=== PATIENT | female | born 1990 | race Caucasian/White ===

== ENCOUNTER 2019-08-07 18:44 | Emergency (ER) | payer SELFPAY ==
--- NOTE | 2019-08-07 21:09 | ER ---
Nurse's Notes [facility] Name: Charli Cartwright Age: 29 yrs Sex: Female : 1990 Arrival Date: 08/07/2019 Time: 18:45 Bed 13 Private MD: Diagnosis: Acute upper respiratory infection, unspecified Presentation: 08/06 19:04 Chief complaint: Patient states: headache and sore throat that began last night. ss Coronavirus screen: The patient has NOT traveled to a country currently being monitored by the [facility] within the last 14 days. Proceed with normal triage procedures. Ebola Screen: Patient denies exposure to infectious person. Patient denies travel to an Ebola-affected area in the 21 days before illness onset. Initial Sepsis Screen: Does the patient meet any 2 criteria? No. Patient's initial sepsis screen is negative. Does the patient have a suspected source of infection? No. Patient's initial sepsis screen is negative. Risk Assessment: Do you want to hurt yourself or someone else? Patient reports no desire to harm self or others. 19:04 Method Of Arrival: Ambulatory 19:04 Acuity: MEGHAN 4 ss 21:00 Onset of symptoms was August 07, 2019. mg2 Triage Assessment: 21:00 Headache History: The patient has had previous headaches and this one is similar to mg2 previous episodes. General: Appears in no apparent distress. comfortable, Behavior is calm, cooperative. Pain: Also complains of no other associated symptoms. 21:00 Pain: Pain currently is 4 out of 10 on a pain scale. Pain began gradually. 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 - Social history:: Smoking status: Patient denies any tobacco usage or history of. Screenin:23 Abuse screen: Denies threats or abuse. Denies injuries from another. Nutritional mg2 screening: No deficits noted. Tuberculosis screening: No symptoms or risk factors identified. Fall Risk None identified. Assessment: 21:00 General: Appears in no apparent distress. comfortable, Behavior is calm, cooperative. mg2 Pain: Complains of pain in head and throat. Neuro: Level of Consciousness is awake, alert, obeys commands, Oriented to person, place, time, situation. GI: Reports vomiting. EENT: Throat is clear Reports sore throat. Vital Signs: 19:05 BP 115 / 70; Pulse 107; Resp 15; Temp 98.0(TE); Pulse Ox 98% on R/A; Weight 92.99 kg; Height 5 ft. 5 in. (165.10 cm); Pain 7/10; 21:23 BP 121 / 78; Pulse 95; Resp 18; Temp 98; Pulse Ox 100% on R/A; mg2 19:05 Body Mass Index 34.11 (92.99 kg, 165.10 cm) ED Course: 18:45 Patient arrived in ED. rg4 19:01 Denise Toro FNP-C is [facility]. snw 19:01 Sesar Infante MD is Attending Physician. snw 19:04 Triage completed. 19:05 Arm band placed on right wrist. 20:05 Shashank Null, PRISCILA is Primary Nurse. mg2 20:20 No provider procedures requiring assistance completed. Flu and/or RSV swab sent to lab. mg2 Strep swab sent to lab. 21:00 Patient has correct armband on for positive identification. mg2 21:20 Patient did not have IV access during this emergency room visit. mg2 Administered Medications: 21:18 Drug: TORadol 30 mg Route: IM; Site: right gluteus; mg2 21:22 Follow up: Response: No adverse reaction; Medication administered at discharge. mg2 Outcome: 21:07 Discharge ordered by . snw 21:24 Discharged to home ambulatory. mg2 21:24 Condition: good 21:24 Discharge instructions given to patient, Instructed on discharge instructions, follow up and referral plans. Demonstrated understanding of instructions, follow-up care, medications, Prescriptions given X 1. 21:26 Patient left the ED. mg2 Signatures: Denise Toro FNP-C FNP-Tia Deleon RN RN Paris Odom rg4 Shashank Null RN RN mg2
--- NOTE | 2019-08-07 21:09 | EDPHYS ---
Physician Documentation [facility] Name: Charli Cartwright Age: 29 yrs Sex: Female : 1990 Arrival Date: 08/07/2019 Time: 18:45 Bed 13 Private MD: ED Physician Sesar Infante HPI: 08/06 21:10 This 29 yrs old Female presents to ER via Ambulatory with complaints of snw Headache, Sore Throat, Vomiting. 21:10 The patient complains of pain to the top of head and forehead. snw 21:11 The patient presents with sore throat. The patient describes throat pain as raw, snw scratchy. Onset: The symptoms/episode began/occurred suddenly, last night. Severity of symptoms: At their worst the symptoms were moderate. Associated signs and symptoms: Pertinent positives: flu-like symptoms, malaise, headache, nausea, Sore throat. It is unknown whether or not the patient has had similar symptoms in the past. The patient has not recently seen a physician. 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 - Social history:: Smoking status: Patient denies any tobacco usage or history of. ROS: 21:10 Eyes: Negative for injury, pain, redness, and discharge. snw 21:10 Neck: Negative for injury, pain, and swelling, Cardiovascular: Negative for chest pain, palpitations, and edema, Respiratory: Negative for shortness of breath, cough, wheezing, and pleuritic chest pain. 21:10 Back: Negative for injury and pain, : Negative for injury, bleeding, discharge, and swelling, MS/Extremity: Negative for injury and deformity, Skin: Negative for injury, rash, and discoloration. 21:10 Constitutional: Positive for body aches, fever, malaise, poor PO intake. 21:10 ENT: Positive for sinus congestion, sore throat. 21:10 Abdomen/GI: Positive for nausea and vomiting. 21:10 Neuro: Positive for headache. Exam: 21:04 Constitutional: This is a well developed, well nourished patient who is awake, alert, snw and in no acute distress. Head/Face: Normocephalic, atraumatic. Eyes: Pupils equal round and reactive to light, extra-ocular motions intact. Lids and lashes normal. Conjunctiva and sclera are non-icteric and not injected. Cornea within normal limits. Periorbital areas with no swelling, redness, or edema. Neck: Trachea midline, no thyromegaly or masses palpated, and minimal cervical lymphadenopathy. Supple, full range of motion without nuchal rigidity, or vertebral point tenderness. No Meningismus. Cardiovascular: Regular rate and rhythm with a normal S1 and S2. No gallops, murmurs, or rubs. Normal PMI, no JVD. No pulse deficits. Respiratory: Lungs have equal breath sounds bilaterally, clear to auscultation and percussion. No rales, rhonchi or wheezes noted. No increased work of breathing, no retractions or nasal flaring. 21:04 Abdomen/GI: Soft, non-tender, with normal bowel sounds. No distension or tympany. No guarding or rebound. No evidence of tenderness throughout. Back: No spinal tenderness. No costovertebral tenderness. Full range of motion. Skin: Warm, dry with normal turgor. Normal color with no rashes, no lesions, and no evidence of cellulitis. MS/ Extremity: Pulses equal, no cyanosis. Neurovascular intact. Full, normal range of motion. Neuro: Awake and alert, GCS 15, oriented to person, place, time, and situation. Cranial nerves II-XII grossly intact. Motor strength 5/5 in all extremities. Sensory grossly intact. Cerebellar exam normal. Normal gait. 21:04 ENT: External ear(s): are unremarkable, Ear canal(s): are normal, TM's: dullness, bilaterally, fluid levels, Nose: is normal, Posterior pharynx: erythema, that is mild, Voice: is normal. Vital Signs: 19:05 BP 115 / 70; Pulse 107; Resp 15; Temp 98.0(TE); Pulse Ox 98% on R/A; Weight 92.99 kg; ss Height 5 ft. 5 in. (165.10 cm); Pain 7/10; 21:23 BP 121 / 78; Pulse 95; Resp 18; Temp 98; Pulse Ox 100% on R/A; mg2 19:05 Body Mass Index 34.11 (92.99 kg, 165.10 cm) ss MDM: 20:13 Patient medically screened. [facility] 21:09 Data reviewed: vital signs, nurses notes. Data interpreted: Pulse oximetry: on room air snw is 98 %. Interpretation: normal. Counseling: I had a detailed discussion with the patient and/or guardian regarding: the historical points, exam findings, and any diagnostic results supporting the discharge/admit diagnosis, lab results, the need for outpatient follow up, to return to the emergency department if symptoms worsen or persist or if there are any questions or concerns that arise at home. Response to treatment: the patient's symptoms have mildly improved after treatment. Special discussion: Based on the history and exam findings, there is no indication for further emergent testing or inpatient evaluation. I discussed with the patient/guardian the need to see the primary care provider for further evaluation of the symptoms. 08/06 19:01 Order name: Flu; Complete Time: 21:06 snw 08/06 19:01 Order name: Strep; Complete Time: 21:06 snw 08/06 20:22 Order name: Urine Culture ao 08/06 20:22 Order name: Urine Microscopic Only ao 08/06 20:52 Order name: Urine Dipstick--Ancillary (enter results) ma 08/06 20:52 Order name: Urine --Ancillary (enter results) ma 08/06 20:22 Order name: Urine Test (obtain specimen); Complete Time: 20:54 ao 08/06 20:22 Order name: Urine Dipstick-Ancillary (obtain specimen); Complete Time: 20:54 ao 08/06 21:06 Order name: Throat Culture EDMS Administered Medications: 21:18 Drug: TORadol 30 mg Route: IM; Site: right gluteus; mg2 21:22 Follow up: Response: No adverse reaction; Medication administered at discharge. mg2 Disposition: 08/07 08:01 Co-signature as Attending Physician, Sesar Infante MD I agree with the assessment and [facility] plan of care. Disposition: 08/07/19 21:07 Discharged to Home. Impression: Acute upper respiratory infection, unspecified. - Condition is Stable. - Discharge Instructions: Pharyngitis, Upper Respiratory Infection, Adult, Rehydration, Adult. - Prescriptions for promethazine 25 mg Oral Tablet - take 1 tablet by ORAL route every 6 hours As needed; 20 tablet. - Work release form, Medication Reconciliation Form, Thank You Letter, Antibiotic Education, Prescription Opioid Use form. - Follow up: Emergency Department; When: As needed; Reason: Worsening of condition. Follow up: Private Physician; When: 2 - 3 days; Reason: Recheck today's complaints, Continuance of care, Re-evaluation by your physician. Signatures: Dispatcher [employer] EDPR Sesar Infante MD MD cha Therrien, Shelly, MANUFACTURING INSPECTOR-C MANUFACTURING INSPECTOR-Csnw Tia Toure RN RN ss Misael Henriquez, RN RN ao Shashank Null, RN RN mg2 Corrections: (The following items were deleted from the chart) 08/06 21:26 21:07 08/07/2019 21:07 Discharged to Home. Impression: Acute upper respiratory mg2 infection, unspecified. Condition is Stable. Forms are Medication Reconciliation Form, Thank You Letter, Antibiotic Education, Prescription Opioid Use. Follow up: Emergency Department; When: As needed; Reason: Worsening of condition. Follow up: Private Physician; When: 2 - 3 days; Reason: Recheck today's complaints, Continuance of care, Re-evaluation by your physician. snw
[2019-08-07] MEDS ORDERED: KETOROLAC 30 MG/ML INJ ONE (21:13)
[2019-08-07 21:45] VITALS: BP 121/78; TEMP 98; O2SAT 100
[2019-08-07 21:50] LABS: Urine Blood NEGATIVE (NEG); Urine Glucose NEGATIVE (NEG); Urine Protein NEGATIVE (NEG); Urine Specific Gravity >1.030 (1.005-1.030); Urine pH 5.5 (5.0-7.0)
[2019-08-07 21:50] LABS: Urine Bacteria 20-50 /HPF (<20); Urine Culture Reflex Order NOT NEEDED; Urine Mucus 1+ /HPF (NONE SEEN); Urine RBC <5 /HPF (NONE SEEN)
== END 2019-08-07 21:26 | disposition home or self-care (01) ==
LOC: ER 18:44
DX: J06.9 Acute upper respiratory infection, unspecified (principal); Z88.0 Allergy status to penicillin
CPT/HCPCS: 81003; 81015; 81025; 87070; 87081; 87086; 87088; 87804; 96372; 99283

== ENCOUNTER 2019-08-17 11:26 | Emergency (ER) | payer SELFPAY ==
--- OUTSIDE RECORDS SUMMARY | 2019-08-17 11:29 | XMS REPORT | Summary of Care ---
:1990 Author Organization [facility] Address [address] [place] [id number] Care Team Providers Name Role Phone Pcp, Patient Does Not Have A Primary Care Provider Reason for Referral MRI/CAT Scan (STAT) Status Reason Specialty Diagnoses / Referred By Referred To Procedures Contact Contact New Request Diagnostic Diagnoses Acute left flank pain Crissy Mckeon Radiology Procedures CT ABDOMEN PELVIS WO CONTRAST MD Arsenio [address] [place] [id number] MRI/CAT Scan (STAT) Status Reason Specialty Diagnoses / Referred By Referred To Procedures Contact Contact New Request Diagnostic Diagnoses Acute left flank pain Piperrima, Marvinkili Radiology Procedures CT ABDOMEN PELVIS WO CONTRAST MD Arsenio [address] [place] [id number] Reason for Visit Reason Comments Flank Pain Auth/Cert Status Reason Specialty Diagnoses / Referred By Referred To Procedures Contact Contact Emergency Medicine Diagnoses FLANK PAIN [facility] [address] [place] [address] [place] [address] Encounter Details Date Type Department Care Team Description 12/30/2018 Emergency [facility]Emergency Crissy Mckeon, Acute left flank pain Department (Primary Dx) [address] [place] [address] [place] [id number] [place], [place] [id number] Allergies Active Allergy Reactions Severity Noted Date Comments Amoxicillin Itching 11/30/2017 documented as of this encounter (statuses as of 12/30/2018) Medications Medication Sig Dispensed Refills Start Date End Date Status ibuprofen 800 mg Take 1 tablet by 21 tablet 0 12/30/2018 Active tabletIndications: mouth every 8 Acute left flank pain (eight) hours as needed (PAIN). documented as of this encounter (statuses as of 12/30/2018) Active Problems Not on filedocumented as of this encounter (statuses as of 12/30/2018) Social History Tobacco Use Types Packs/Day Years Used Date Never Assessed Sex Assigned at Date Recorded Not on file Job Start Date Occupation Industry Not on file Not on file Not on file Travel History Travel Start Travel End No recent travel history available. documented as of this encounter Last Filed Vital Signs Vital Sign Reading Time Taken Comments Blood Pressure 125/82 12/30/2018 2:28 AM CDT Pulse 66 12/30/2018 2:28 AM CDT Temperature 37.1 C (98.7 F) 12/30/2018 12:18 AM CDT Respiratory Rate 16 12/30/2018 2:28 AM CDT Oxygen Saturation 99% 12/30/2018 2:28 AM CDT Inhaled Oxygen Concentration - - Weight 81.6 kg (180 lb) 12/30/2018 12:18 AM CDT Height 167.6 cm (5' 6") 12/30/2018 12:18 AM CDT Body Mass Index 29.05 12/30/2018 12:18 AM CDT documented in this encounter Discharge Instructions Crissy Díaz MD - 12/30/2018 DIAGNOSIS Diagnoses that have been ruled out: None Diagnoses that are still under consideration: None Final diagnoses: Acute left flank pain NO LIFE-THREATENING FINDINGS ON TODAY'S EXAM. PROCEDURES IN THE ER TODAY: Orders Placed This Encounter Procedures CT ABDOMEN PELVIS WO CONTRAST CBC WITH DIFF COMP. METABOLIC PANEL (62155) LIPASE URINALYSIS POCT TEST CBC WITH DIFFERENTIAL MEDICATIONS ADMINISTERED IN THE ER TODAY AND DISCHARGE MEDICATIONS: Orders Placed This Encounter Medications ketorolac (TORADOL) injection 30 mg ibuprofen 800 mg tablet FOLLOW-UP RECOMMENDATIONS: RECOMMEND FOLLOW-UP WITH A PRIMARY CARE PROVIDER OR SPECIALIST IN 2-5 DAYS, ESPECIALLY IF NO IMPROVEMENT IN SYMPTOMS. MAY FOLLOW-UP WITH A PROVIDER OF YOUR CHOICE, SUCH : 1. A PHYSICIAN OF YOUR CHOICE 2. [facility], . LOCATIONS IN [facility] 3. [facility], [address] [place], [place]; OR, IF YOU WISH TO FOLLOW-UP WITHIN THE [facility], MAY TRY THESE OPTIONS (CLINIC APPOINTMENTS AVAILABLE ON [id number] BASIS): 1. SCHEDULE AN APPOINTMENT ONLINE AT [email or web address] 2. OR CALL THE [facility] AT OR 3. OR CALL YOUR [facility] PHYSICIAN'S OFFICE DIRECTLY IF YOU ARE ALREADY AN ESTABLISHED [facility] PATIENT. RETURN TO ER FOR WORSENING OF SYMPTOMS documented in this encounter Plan of Treatment Name Type Priority Associated Diagnoses Date/Time CT ABDOMEN PELVIS WO IMAGING STAT Acute left flank pain 12/30/2018 2:19 AM CDT CONTRAST Health Maintenance Due Date Last Done Comments VARICELLA VACCINES (1 of 2 - 13+ 2003 2-dose series) DTaP,Tdap,and Td Vaccines (1 - 2009 Tdap) PAP SMEAR 11/03/2011 11/02/2008 INFLUENZA VACCINE 01/29/2019 PNEUMOCOCCAL 0-64 YEARS COMBINED Aged Out No longer eligible based on SERIES patient's age to complete this topic documented as of this encounter Procedures Procedure Name Priority Date/Time Associated Diagnosis Comments CT ABDOMEN PELVIS WO STAT 12/30/2018 2:19 AM Acute left flank pain CONTRAST CDT Procedure Note - [facility], Radiant Results Inft User - 12/30/2018 2:29 AM CDT * * * * * * * * ORIGINAL REPORT * * * * * * * * EXAM: CT ABDOMEN PELVIS WO CONTRAST HISTORY: 28-year-old female complains of Flank pain, stone disease suspected COMPARISON: None. TECHNIQUE AND FINDINGS: Contiguous axial imaging from the level of the lung bases through the pubic symphysis was performed without the intravenous administration of contrast. Coronal and sagittal reconstructions were obtained. Auto mA and/or iterative reconstruction were used to reduce radiation dose. FINDINGS: LOWER THORAX: The lungs bases are clear. No cardiomegaly. LIVER: Liver is enlarged measures 18.8 cm and slightly hypodense. No focal hepatic lesions are identified within the limitation of a noncontrast study. GALLBLADDER AND BILIARY TREE: No biliary ductal dilation. The gallbladder is decompressed. SPLEEN: No splenomegaly. PANCREAS: No ductal dilation or masses. ADRENAL GLANDS: No adrenal nodules. KIDNEYS: No hydronephrosis, stones, or masses. PERITONEUM AND RETROPERITONEUM: No free air or fluid. LYMPH NODES: No lymphadenopathy. GI TRACT: No bowel dilation or wall thickening. The appendix is normal (2:77-98). PELVIS/BLADDER: Unremarkable. The bladder is partially decompressed. The uterus appears normal and contains an intrauterine device within the endometrial cavity. VESSELS: Unremarkable. BONES AND SOFT TISSUES: A punctate focus of sclerosis is seen in the right acetabulum, likely representing a bone island No suspicious lytic or sclerotic bony lesions. IMPRESSION No CT findings to explain patient's flank pain. Hepatomegaly with hepatic steatosis. POCT TEST LEIDA 12/30/2018 1:36 AM Acute left flank Results for this CDT pain procedure are in the results section. CBC WITH DIFFERENTIAL STAT 12/30/2018 1:35 AM Acute left flank Results for this CDT pain procedure are in the results section. CBC WITH DIFF STAT 12/30/2018 1:35 AM Acute left flank Results for this CDT pain procedure are in the results section. COMP. METABOLIC PANEL STAT 12/30/2018 1:35 AM Acute left flank Results for this (47004) CDT pain procedure are in the results section. LIPASE STAT 12/30/2018 1:35 AM Acute left flank Results for this CDT pain procedure are in the results section. URINALYSIS STAT 12/30/2018 1:28 AM Acute left flank Results for this CDT pain procedure are in the results section. documented in this encounter Results POCT TEST (12/30/2018 1:36 AM CDT) Pathologist [facility] POCT PREG Negative On board controls acceptable Present with C Line POCT PREG LOT # [id number] POCT PREG TEST DATE 05/30/2020 Specimen Urine - URINE, CLEAN CATCH CBC WITH DIFFERENTIAL (12/30/2018 1:35 AM CDT) [facility] WBC 7.48 4.30 - 11.10 [facility] 10*3/L [facility] RBC 4.64 3.93 - 5.25 [facility] 10*6/L [facility] HGB 14.7 11.6 - 15.0 g/dL [facility] HCT 43.2 35.7 - 45.2 % [facility] MCV 93.1 80.6 - 95.5 fL [facility] MCH 31.7 25.9 - 32.8 pg [facility] MCHC 34.0 31.6 - 35.1 g/dL [facility] RDW-SD 41.7 39.0 - 49.9 fL [facility] RDW-CV 12.1 12.0 - 15.5 % [facility] PLT 208 166 - 358 [facility] 10*3/L [facility] MPV 11.5 9.5 - 12.9 fL [facility] NRBC/100 WBC 0.0 0.0 - 10.0 /100 [facility] WBCs [facility] NRBC x10^3 <0.01 10*3/L [facility] GRAN MAT (NEUT) % 56.3 % [facility] IMM GRAN % 0.50 % [facility] LYMPH % 33.0 % [facility] MONO % 8.6 % [facility] EOS % 1.2 % [facility] BASO % 0.4 % [facility] GRAN MAT x10^3(ANC) 4.21 1.88 - 7.09 [facility] 10*3/uL HOSPITAL [facility] IMM GRAN x10^3 0.04 0.00 - 0.06 [facility] 10*3/uL [facility] LYMPH x10^3 2.47 1.32 - 3.29 [facility] 10*3/uL [facility] MONO x10^3 0.64 0.33 - 0.92 [facility] 10*3/uL [facility] EOS x10^3 0.09 0.03 - 0.39 [facility] 10*3/uL [facility] BASO x10^3 0.03 0.01 - 0.07 [facility] 10*3/uL [facility]ITAL [facility] Specimen Blood - VENOUS Performing Organization Address City/State/Zipcode Phone Number [facility] CLIA: [id number], [address] [place] [address] LIPASE (12/30/2018 1:35 AM CDT) LIPASE 121 0 - 220 U/L [facility] Specimen Blood - VENOUS Performing Organization Address City/State/Zipcode Phone Number [facility] CLIA: [id number], [address] [place] [address] COMP. METABOLIC PANEL (28254) (12/30/2018 1:35 AM CDT) NA 142 135 - 145 [facility] mmol/L [facility] K 4.0 3.5 - 5.0 [facility] mmol/L [facility] CL 106 98 - 108 mmol/L [facility] CO2 TOTAL 25 23 - 31 mmol/L [facility] AGAP 11 2 - 16 [facility] BUN 15 7 - 23 mg/dL [facility] GLUCOSE 116 (H) 70 - 110 mg/dL [facility] CREATININE 0.94 0.50 - 1.04 [facility] mg/dL [facility] TOTAL BILI 0.3 0.1 - 1.1 mg/dL [facility] CALCIUM 9.1 8.6 - 10.6 [facility] mg/dL [facility] T PROTEIN 7.9 6.3 - 8.2 g/dL [facility] ALBUMIN 4.5 3.5 - 5.0 g/dL [facility] ALK PHOS 88 34 - 122 U/L [facility] ALT(SGPT) 27 9 - 51 U/L [facility] AST(SGOT) 19 13 - 40 U/L [facility] eGFR Calculation 70.9 mL/min/1.73m2 [facility] (Non[facility] LAB[facility]ATORY Cymro) eGFR Calculation 85.9 mL/min/1.73m2 [facility] () [facility] Specimen Blood - VENOUS Narrative Performed At Association of Glomerular Filtration Rate (GFR) [facility] and Staging of Kidney Disease* + + +- + | GFR (mL/min/1.73 m2)| With Kidney Damage|Without Kidney Damage + + +- + |>90| Stage one| Normal + + +- + |60-89|S tage two| Decreased GFR + + +- + |30-59|S tage three| Stage three + + +- + |15-29|S tage four | Stage four + + +- + |<15 (or dialysis)|Stage five | Stage five + + +- + *Each stage assumes the associated GFR level has been in effect for at least three months.Stages 1 to 5, with or without kidney disease, indicate chronic kidney disease. Notes: Determination of stages one and two (with eGFR >59mL/min/1.73 m2) requires estimation of kidney damage for at least three months as defined by structural or functional abnormalities of the kidney, manifested by either: Pathological abnormalities or Markers of kidney damage (including abnormalities in the composition of the blood or urine or abnormalities in imaging tests). Performing Organization Address City/[facility] Phone Number [facility] CLIA: [id number], [address] [place] [address] URINALYSIS (12/30/2018 1:28 AM CDT) APPEARANCE Slightly Cloudy (A) Clear [facility] COLOR Yellow Yellow [facility] PH 7.0 4.8 - 8.0 [facility] SP GRAVITY 1.020 1.003 - 1.030 [facility] GLU U QUAL Negative Negative [facility] BLOOD Negative Negative [facility] KETONES Negative Negative [facility] PROTEIN Negative Negative [facility] UROBILIN 0.2 mg/dL 0-1.0 mg/dL [facility] BILIRUBIN Negative Negative [facility] NITRITE Negative Negative [facility] LEUK SHAILESH Negative Negative [facility] RBC/HPF 0 0 - 3 HPF [facility] WBC/HPF 10 (H) 0 - 5 HPF [facility] BACTERIA Moderate (A) Negative [facility] SQ EPITH 20 HPF [facility] Specimen Urine - URINE, CLEAN CATCH Performing Organization Address City/[facility] Centercori Phone Number [facility] CLIA: [id number], [address] [place] [address] documented in this encounter Visit Diagnoses Diagnosis Acute left flank pain - Primary Abdominal pain, unspecified site documented in this encounter Administered Medications Medication Order MAR Action Action Date Dose Rate Site ketorolac (TORADOL) injection 30 Given 12/30/2018 1:36 AM CDT 30 mg mg 30 mg, Slow IV Push, ONCE, 1 dose, 8/2/19 at 0230, Routine, 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
--- OUTSIDE RECORDS SUMMARY | 2019-08-17 11:29 | XMS REPORT ---
:1990 [facility] Address [address] [place] [address] Dr. Martínez [address] [place] [address] Care Team Providers Name Role Phone Unavailable Unavailable Unavailable Problems This patient has no known problems. Allergies, Adverse Reactions, Alerts This patient has no known allergies or adverse reactions. Medications This patient has no known medications.
--- NOTE | 2019-08-17 12:51 | EDPHYS ---
Physician Documentation [facility] Name: Charli Cartwright Age: 29 yrs Sex: Female : 1990 Arrival Date: 08/17/2019 Time: 11:29 Bed 23 Private MD: ED Physician Carlos Retana HPI: 08/16 12:47 This 29 yrs old Female presents to ER via Ambulatory with complaints of kb Cough, Congestion. 12:47 The patient or guardian reports cough, that is intermittent, described as mild, with no kb sputum. Onset: The symptoms/episode began/occurred 10 day(s) ago. Severity of symptoms: At their worst the symptoms were mild, in the emergency department the symptoms are unchanged. Modifying factors: The symptoms are alleviated by nothing, the symptoms are aggravated by nothing. Associated signs and symptoms: Pertinent positives: sore throat, Pertinent negatives: chest pain, diarrhea, ear ache, fever, nausea, rhinorrhea, vomiting. The patient has not experienced similar symptoms in the past. The patient has not recently seen a physician. Historical: - Allergies: 12:27 PENICILLINS; iw - Home Meds: 12:27 None [Active]; iw - PMHx: 12:27 None; iw - PSHx: 12:27 ; iw - Immunization history:: Adult Immunizations not up to date. - Social history:: Smoking status: Patient denies any tobacco usage or history of. ROS: 12:46 Constitutional: Negative for fever, chills, and weight loss, ENT: Negative for injury, kb pain, and discharge, Neck: Negative for injury, pain, and swelling, Cardiovascular: Negative for chest pain, palpitations, and edema, Abdomen/GI: Negative for abdominal pain, nausea, vomiting, diarrhea, and constipation, Back: Negative for injury and pain, MS/Extremity: Negative for injury and deformity, Skin: Negative for injury, rash, and discoloration, Neuro: Negative for headache, weakness, numbness, tingling, and seizure. 12:46 Respiratory: Positive for cough, Negative for dyspnea on exertion, hemoptysis, orthopnea, pleurisy, shortness of breath, sputum production, wheezing. Exam: 12:46 Constitutional: This is a well developed, well nourished patient who is awake, alert, kb and in no acute distress. Head/Face: Normocephalic, atraumatic. ENT: Nares patent. No nasal discharge, no septal abnormalities noted. Tympanic membranes are normal and external auditory canals are clear. Oropharynx with no redness, swelling, or masses, exudates, or evidence of obstruction, uvula midline. Mucous membranes moist. Neck: Trachea midline, no thyromegaly or masses palpated, and no cervical lymphadenopathy. Supple, full range of motion without nuchal rigidity, or vertebral point tenderness. No Meningismus. Chest/axilla: Normal chest wall appearance and motion. Nontender with no deformity. No lesions are appreciated. Cardiovascular: Regular rate and rhythm with a normal S1 and S2. No gallops, murmurs, or rubs. Normal PMI, no JVD. No pulse deficits. Respiratory: Lungs have equal breath sounds bilaterally, clear to auscultation and percussion. No rales, rhonchi or wheezes noted. No increased work of breathing, no retractions or nasal flaring. Abdomen/GI: Soft, non-tender, with normal bowel sounds. No distension or tympany. No guarding or rebound. No evidence of tenderness throughout. Back: No spinal tenderness. No costovertebral tenderness. Full range of motion. Skin: Warm, dry with normal turgor. Normal color with no rashes, no lesions, and no evidence of cellulitis. MS/ Extremity: Pulses equal, no cyanosis. Neurovascular intact. Full, normal range of motion. Neuro: Awake and alert, GCS 15, oriented to person, place, time, and situation. Cranial nerves II-XII grossly intact. Motor strength 5/5 in all extremities. Sensory grossly intact. Cerebellar exam normal. Normal gait. Vital Signs: 12:00 BP 116 / 88; Pulse 86; Resp 16; Temp 98.3; Pulse Ox 99% on R/A; Weight 95.25 kg; Height iw 5 ft. 6 in. (167.64 cm); Pain 3/10; 12:00 Body Mass Index 33.89 (95.25 kg, 167.64 cm) iw MDM: 11:45 Patient medically screened. kb 12:47 Data reviewed: vital signs, nurses notes. Data interpreted: Pulse oximetry: on room air kb is 99 %. Interpretation: normal. Counseling: I had a detailed discussion with the patient and/or guardian regarding: the historical points, exam findings, and any diagnostic results supporting the discharge/admit diagnosis, radiology results, the need for outpatient follow up, a family practitioner, to return to the emergency department if symptoms worsen or persist or if there are any questions or concerns that arise at home. 08/16 12:01 Order name: Chest Single View XRAY; Complete Time: 12:57 kb Administered Medications: No medications were administered Disposition: 18:29 Co-signature as Attending Physician, Carlos Retana MD. Signature for administrative ps1 purposes. Did not see or evaluate patient. . Chart complete. Disposition: 08/17/19 12:50 Discharged to Home. Impression: Cough. - Condition is Stable. - Discharge Instructions: Cough, Adult, [id number]. - Medication Reconciliation Form, Thank You Letter, Antibiotic Education, Prescription Opioid Use, Work release form form. - Follow up: Emergency Department; When: As needed; Reason: Worsening of condition. Follow up: Private Physician; When: 2 - 3 days; Reason: Recheck today's complaints, Continuance of care, Re-evaluation by your physician. Signatures: Dispatcher [employer] EDSD Aura Cavazos, STAPLE LASTER-C STAPLE LASTER-Thomasb Maty Waddell RN RN Carlos Badillo MD MD ps1 Corrections: (The following items were deleted from the chart) 13:11 12:50 08/17/2019 12:50 Discharged to Home. Impression: Cough. Condition is Stable. iw Forms are Medication Reconciliation Form, Thank You Letter, Antibiotic Education, Prescription Opioid Use. Follow up: Emergency Department; When: As needed; Reason: Worsening of condition. Follow up: Private Physician; When: 2 - 3 days; Reason: Recheck today's complaints, Continuance of care, Re-evaluation by your physician. kb
--- NOTE | 2019-08-17 12:51 | ER ---
Nurse's Notes [facility] [place] Name: Charli Cartwright Age: 29 yrs Sex: Female : 1990 Arrival Date: 08/17/2019 Time: 11:29 Bed 23 Private MD: Diagnosis: Cough Presentation: 08/16 12:00 Chief complaint: Patient states: was seen here on August 06, flu/strep were negative , iw also had vomiting and fever , has not had fever recently but still has a productive cough and her chest rushing. Coronavirus screen: The patient has NOT traveled to a country currently being monitored by the [facility] within the last 14 days. Proceed with normal triage procedures. The patient has NOT had contact with any known and/or suspected case of coronavirus. Proceed with normal triage procedures. Ebola Screen: Patient negative for fever greater than or equal to 101.5 degrees Fahrenheit, and additional compatible Ebola Virus Disease symptoms Patient denies exposure to infectious person. Patient denies travel to an Ebola-affected area in the 21 days before illness onset. No symptoms or risks identified at this time. Initial Sepsis Screen: Does the patient meet any 2 criteria? No. Patient's initial sepsis screen is negative. Does the patient have a suspected source of infection? No. Patient's initial sepsis screen is negative. Risk Assessment: Do you want to hurt yourself or someone else? Patient reports no desire to harm self or others. 12:00 Method Of Arrival: Ambulatory iw 12:00 Acuity: MEGHAN 4 iw Triage Assessment: 12:00 General: Appears in no apparent distress. Behavior is calm, cooperative, appropriate vc for age. Pain: Denies pain. Respiratory: Breath sounds are clear. Historical: - Allergies: 12:27 PENICILLINS; iw - Home Meds: 12:27 None [Active]; iw - PMHx: 12:27 None; iw - PSHx: 12:27 ; iw - Immunization history:: Adult Immunizations not up to date. - Social history:: Smoking status: Patient denies any tobacco usage or history of. Screenin:00 Abuse screen: Denies threats or abuse. Nutritional screening: No deficits noted. vc Tuberculosis screening: No symptoms or risk factors identified. Fall Risk None identified. Assessment: 12:00 General: Appears in no apparent distress. uncomfortable, ill, Behavior is calm, vc cooperative, appropriate for age. Pain: Denies pain. Neuro: Level of Consciousness is awake, alert, obeys commands. Cardiovascular: Capillary refill < 3 seconds Patient's skin is warm and dry. Respiratory: Airway is patent Respiratory effort is even, unlabored, Respiratory pattern is regular, symmetrical. Vital Signs: 12:00 BP 116 / 88; Pulse 86; Resp 16; Temp 98.3; Pulse Ox 99% on R/A; Weight 95.25 kg; Height iw 5 ft. 6 in. (167.64 cm); Pain 3; 12:00 Body Mass Index 33.89 (95.25 kg, 167.64 cm) iw ED Course: 11:29 Patient arrived in ED. mr 11:39 [facility]C [facility] kb 11:39 Carlos Retana MD is Attending Physician. kb 11:47 Crystal Hernandez, RN is Primary Nurse. vc 12:27 Triage completed. iw 12:28 Arm band placed on. iw 12:34 X-ray completed. Portable x-ray completed in exam room. Patient tolerated procedure ml well. 12:36 Chest Single View XRAY In Process Unspecified. EDMS 13:10 No provider procedures requiring assistance completed. Patient did not have IV access vc during this emergency room visit. Administered Medications: No medications were administered Outcome: 12:50 Discharge ordered by MD. kb 13:10 Discharged to home ambulatory. vc 13:10 Condition: good 13:10 Discharge instructions given to patient, Instructed on discharge instructions, follow up and referral plans. Demonstrated understanding of instructions, follow-up care. 13:11 Patient left the ED. iw Signatures: Dispatcher [employer] EDMS Aura Cavazos FNP-C FNP-Ckb KadeObdulia Maty Waddell, RN Aissatou Richmond Vanessa, PRISCILA RN vc
--- NOTE | 2019-08-17 12:52 | RAD REPORT ---
EXAM DESCRIPTION: RAD - Chest Single View - 08/17/2019 12:34 pm CLINICAL HISTORY: COUGH Chest pain. COMPARISON: CHEST PA AND LAT 2 VIEW dated 11/17/2007 FINDINGS: Portable technique limits examination quality. The lungs are grossly clear. The heart is normal in size. No displaced fractures. IMPRESSION: No acute intrathoracic process suspected.
[2019-08-17 13:20] VITALS: BP 116/88; TEMP 98.3; O2SAT 99
== END 2019-08-17 13:11 | disposition home or self-care (01) ==
LOC: ER 11:26
DX: R05 Cough (principal); Z88.0 Allergy status to penicillin
CPT/HCPCS: 71045; 99283

== ENCOUNTER 2024-10-23 23:55 | Emergency (ER) | payer SELFPAY ==
--- NOTE | 2024-10-24 01:25 | ER ---
Nurse's Notes [facility] Name: Charli Mancilla Age: 34 yrs Sex: Female : 1990 Arrival Date: 10/23/2024 Time: 23:55 Bed 15 Private MD: Diagnosis: Candidiasis of vulva and vagina Presentation: 10/24 00:12 Chief complaint: Patient states: VAGINAL YEAST INFECTION, TRIED OVER THE COUNTER MEDS ha1 BUT NOTHING IS HELPING. VAGINA AREA SWOLLEN. 00:12 Coronavirus screen: Client denies travel out of the [place] in the last 14 days. Ebola ha1 Screen: No symptoms or risks identified at this time. Initial Sepsis Screen: Does the patient meet any 2 criteria? No. Patient's initial sepsis screen is negative. Does the patient have a suspected source of infection? No. Patient's initial sepsis screen is negative. Risk Assessment: Do you want to hurt yourself or someone else? Patient reports no desire to harm self or others. Onset of symptoms was October 24, 2024. 00:12 Method Of Arrival: Ambulatory ha1 00:12 Acuity: MEGHAN 4 ha1 Triage Assessment: 00:53 General: Appears in no apparent distress. uncomfortable, Behavior is calm, cooperative, km10 appropriate for age. Pain: Complains of pain in vagina. Neuro: Level of Consciousness is awake, alert, Oriented to person, place, time, situation, Appropriate for age. Respiratory: Respiratory effort is even, unlabored. : Reports vaginal itching, since yesterday. 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 - Infectious Disease History:: Denies. - Social history:: Smoking status: Patient denies any tobacco usage or history of. - Family history:: not pertinent. Screenin:54 [facility] ED Fall Risk Assessment (Adult) History of falling in the last 3 months, km10 including since admission No falls in past 3 months (0 pts) Confusion or Disorientation No (0 pts) Intoxicated or Sedated No (0 pts) Impaired Gait No (0 pts) Mobility Assist Device Used No (0 pt) Altered Elimination No (0 pt) Score/Fall Risk Level 0 - 2 = Low Risk. Abuse screen: Denies threats or abuse. Denies injuries from another. Nutritional screening: No deficits noted. Tuberculosis screening: No symptoms or risk factors identified. Assessment: :49 Reassessment: Patient appears in no apparent distress at this time. No changes from km10 previously documented assessment. Vital Signs: 00:12 BP 146 / 93; Pulse 84; Resp 16 S; Temp 97.6(T); Pulse Ox 99% on R/A; Weight 104.33 kg; ha1 Height 5 ft. 5 in. ; 01:00 BP 146 / 93; Pulse 88; Resp 18; Pulse Ox 96% on R/A; km10 00:12 Body Mass Index 38.27 (104.33 kg, 165.1 cm) ha1 Akiko Coma Score: 19:17 Eye Response: spontaneous(4). Motor Response: obeys commands(6). Verbal Response: sp4 oriented(5). Total: 15. ED Course: 10/23 23:56 Patient arrived in ED. [email or web address] 10/24 00:06 John Munguia MD is Attending Physician. sp4 00:18 Rachel Bergeron RN is Primary Nurse. km10 :26 Triage completed. ha1 00:54 Arm band placed on right wrist. km10 00:55 Patient has correct armband on for positive identification. Bed in low position. Call km10 light in reach. Side rails up X 1. Provided Education on: plan of care. Door closed. Noise minimized. Warm blanket given. Pillow given. : UA W/ Microscopic Sent. oe 01:23 Test, Urine Sent. oe Administered Medications: : Drug: Fluconazole PO 200 mg PO once Route: PO; :51 Follow up: Response: No adverse reaction : Drug: Ibuprofen PO 800 mg PO once Route: PO; Follow up: Response: No adverse reaction Drug: Acetaminophen PO 1000 mg PO once Route: PO; Follow up: Response: No adverse reaction Outcome: :25 Discharge ordered by . sp4 :49 Discharged to home ambulatory, 49 Condition: stable : Discharge instructions given to patient, Instructed on discharge instructions, follow up and referral plans. medication usage, Demonstrated understanding of instructions, follow-up care, medications, Prescriptions given X 2, 01:50 Patient left the ED. km10 Signatures: Alvin Valencia Jennifer jj6 Brisa Mathis, RN RN ha1 John Munguia MD MD sp4 Rachel Bergeron RN RN km10
--- NOTE | 2024-10-24 01:25 | EDPHYS ---
Physician Documentation [facility] Name: Charli Mancilla Age: 34 yrs Sex: Female : 1990 Arrival Date: 10/23/2024 Time: 23:55 Bed 15 Private MD: ED Physician John Munguia HPI: 10/24 00:06 This 34 yrs old Other Race Female presents to ER via Unassigned with complaints of sp4 Vaginal Itching, VAGINAL SWELLING/PROBLEM. 19:17 34-year-old female presents to the ER with vaginal itching and vaginal discomfort and sp4 discharge of yeast. 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 - Infectious Disease History:: Denies. - Social history:: Smoking status: Patient denies any tobacco usage or history of. - Family history:: not pertinent. ROS: 19:17 Constitutional: Negative for fever, chills, and weight loss, positive vaginal discharge sp4 and vaginal itching 19:17 All other systems are negative, Exam: 19:17 Constitutional: This is a well developed, well nourished patient who is awake, alert, sp4 and in no acute distress. Head/Face: Normocephalic, atraumatic. Eyes: Pupils equal round and reactive to light, extra-ocular motions intact. Lids and lashes normal. Conjunctiva and sclera are not injected. Cornea within normal limits. Periorbital areas with no swelling, redness, or edema. ENT: Nares patent. No nasal discharge, no septal abnormalities noted. Tympanic membranes are normal and external auditory canals are clear. Oropharynx with no redness, swelling, or masses, exudates, or evidence of obstruction, uvula midline. Mucous membranes moist. Neck: Trachea midline, no thyromegaly or masses palpated, and no cervical lymphadenopathy. Supple, full range of motion without nuchal rigidity, or vertebral point tenderness. Chest/axilla: Normal chest wall appearance and motion. Nontender with no deformity. No lesions are appreciated. Cardiovascular: Regular rate and rhythm with a normal S1 and S2. No gallops, murmurs, or rubs. Normal PMI, no JVD. No pulse deficits. Respiratory: Lungs have equal breath sounds bilaterally, clear to auscultation and percussion. No rales, rhonchi or wheezes noted. No increased work of breathing, no retractions or nasal flaring. Abdomen/GI: Soft, with normal bowel sounds. No distension or tympany. No guarding or rebound. No evidence of tenderness throughout. Back: No spinal tenderness. No costovertebral tenderness. Pelvic Exam: Normal external genitalia. Speculum exam with closed cervical os, positive for moderate amount of white discharge consistent with acute vaginal candidiasis. Skin: Warm, dry with normal turgor. Normal color with no rashes, no lesions, and no evidence of cellulitis. MS/ Extremity: Pulses equal, no cyanosis. Neurovascular intact. Full, normal range of motion. Neuro: Awake and alert, GCS 15, oriented to person, place, time, and situation. Cranial nerves II-XII grossly intact. Motor strength 5/5 in all extremities. Sensory grossly intact. Psych: Awake, alert, with orientation to person, place and time. Behavior, mood, and affect are within normal limits Vital Signs: 00:12 BP 146 / 93; Pulse 84; Resp 16 S; Temp 97.6(T); Pulse Ox 99% on R/A; Weight 104.33 kg; ha1 Height 5 ft. 5 in. ; 01:00 BP 146 / 93; Pulse 88; Resp 18; Pulse Ox 96% on R/A; km10 00:12 Body Mass Index 38.27 (104.33 kg, 165.1 cm) ha1 Akiko Coma Score: 19:17 Eye Response: spontaneous(4). Motor Response: obeys commands(6). Verbal Response: sp4 oriented(5). Total: 15. MDM: 01:25 Medical Screening Exam initiated sp4 19:17 Differential diagnosis: rigoberto infection, cervicitis, dysmenorrhea, urinary tract sp4 infection, vaginosis. Data reviewed: vital signs, nurses notes. 19:24 Consideration of Admission/Observation Escalation of care including sp4 admission/observation considered. ED course: Exam positive for signs of vaginal candidiasis. Patient stable for discharge home. Diflucan prescribed for the next 10 days.. 10/24 00:07 Order name: UA W/ Microscopic; Complete Time: 19:23 sp4 10/24 00:07 Order name: Test, Urine; Complete Time: 19:23 sp4 10/24 01:10 Order name: Glucose, Ancillary Testing; Complete Time: 19:23 EDND 10/24 00:07 Order name: Pelvic Exam Setup; Complete Time: 00:57 sp4 10/24 00:54 Order name: Accucheck Blood Glucose; Complete Time: 00:59 sp4 Administered Medications: 01:49 Drug: Fluconazole PO 200 mg PO once Route: PO; km10 01:51 Follow up: Response: No adverse reaction km10 01:49 Drug: Ibuprofen PO 800 mg PO once Route: PO; km10 01:51 Follow up: Response: No adverse reaction 10 :49 Drug: Acetaminophen PO 1000 mg PO once Route: PO; km10 :51 Follow up: Response: No adverse reaction km10 Disposition: 19:24 Chart complete. sp4 Disposition Summary: 10/24/24 01:25 Discharge Ordered Notes: Location: Home sp4 Problem: new sp4 Symptoms: have improved sp4 Condition: Stable sp4 Diagnosis - Candidiasis of vulva and vagina sp4 Followup: sp4 - With: Private Physician - When: 7 - 10 days - Reason: Recheck today's complaints Discharge Instructions: - Discharge Summary Sheet sp4 - Vaginal Yeast Infection, Adult sp4 Forms: - Patient Portal Instructions sp4 Prescriptions: - Ibuprofen 800 mg Oral Tablet - take 1 tablet ORAL route every 8 hours As needed take with food; 30 tablet; sp4 Refills: 0, Product Selection Permitted - Fluconazole 200 mg Oral tablet - take 1 tablet ORAL route once daily for 10 days; 10 tablet; Refills: 0, Product sp4 Selection Permitted Signatures: Dispatcher [employer] Brisa Apple RN RN ha1 John Munguia MD MD sp4 Rachel Bergeron RN RN km10
[2024-10-24 01:34] LABS: Sqamous Epithelial <5 /HPF (None Seen); Urine Bacteria None Seen /HPF (<20); Urine Bilirubin NEGATIVE (Negative); Urine Blood Trace (Negative); Urine Clarity Turbid (Clear); Urine Color Light-Yellow (Yellow); Urine Glucose NEGATIVE (Negative); Urine Ketones NEGATIVE (Negative); Urine Micro Reflex YN NO BILL MICROSCOPIC; Urine Mucus Slight /HPF (None Seen); Urine Nitrite NEGATIVE (Negative); Urine Protein NEGATIVE (Negative); Urine RBC <5 /HPF (None Seen); Urine Urobilinogen Normal (Normal); Urine WBC <5 /HPF (<5); Urine pH 5.5 (5.0-7.0)
[2024-10-24] MEDS ORDERED: ACETAMINOPHEN 500 MG TAB ONE (01:42)
[2024-10-24] MEDS ORDERED: FLUCONAZOLE 100 MG TAB ONE (01:43)
[2024-10-24] MEDS ORDERED: IBUPROFEN 400 MG TAB ONE (01:43)
[2024-10-24 02:19] VITALS: BP 146/93; TEMP 97.6
[2024-10-24 02:21] VITALS: O2SAT 96
== END 2024-10-24 01:50 | disposition home or self-care (01) ==
LOC: ER 23:55
DX: B37.31 Acute candidiasis of vulva and vagina (principal)
CPT/HCPCS: 81001; 81025; 82947; 99283

== ENCOUNTER 2025-02-14 19:26 | Emergency (ER) | payer SELFPAY ==
--- OUTSIDE RECORDS SUMMARY | 2025-02-14 19:29 | XMS REPORT | Continuity of Care Document ---
Author Name Unknown Address [address] [place] [address] Organization [facility] [place] Address [address] [place] [address] Care Team Providers Care Cognos Name Role Phone Randi Hassan Primary Care Physician [phone] [employer] Attending Clinician Unavailab le [email or web address]_Q Attending Clinician UnavailEugene Banda MD Attending Clinician [email or web address]_Q Admitting Clinician Kyree corral Payers Payer Name Policy Type Policy Number Effective Date Expirati on Date Source [place] [id number] 2014 00:00:00 [place] [id number] Allergies, Adverse Reactions, Alerts Allergy Name Allergy Type Status Severity Reaction(s) Onset Date Inactive Date Treating Clinician Comments Source amoxicil joaquim (Not Checked) Propensi ty to adverse reaction to drug Active 12-04 00:00: 00 Kaleb Cerrato Amoxicil joaquim Propensi ty to adverse reaction s Active Itching 11-30 00:00: 00 [facility] AMOXICIL JOAQUIM DRUG INGREDI Active ITCHING 11-30 00:00: 00 [facility] Social History Social Habit Start Date Stop Date Quantity Comments Source ASSERTION Possible [facility] Sexual orientation [facility] Sex assigned at 1990 00:00:00 1990 00:00:00 [facility] Smoking Status Start Date Stop Date Source Tobacco smoking consumption unknown [facility] Medications Ordered Medication Name Filled Medication Name Start Date Stop Date Current Medication? Ordering Clinician Indication Dosage Frequency Signature (SIG) Comments Components Source ketorolac (TORADOL) injection 30 mg 12-30 07:30: 00 12-30 06:36 :00 No 30mg 30 mg, Slow IV Push, ONCE, 1 dose, Wed12/30/18 at 0230, Routine
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 [facility] Immunizations Ordered Immunization Name Filled Immunization Name Date Status Comments Source Influenza, seasonal, inj Influenza, seasonal, inj 2019-07-06 00:00:00 Completed Kaleb Cerrato Vital Signs Vital Name Observation Time Observation Value Comments S ourmanuelito Systolic blood pressure 2024-10-26 20:19:00 134 mm[Hg] [facility] Diastolic blood pressure 2024-10-26 20:19:00 88 mm[Hg] [facility] Heart rate 2024-10-26 20:19:00 96 /min [facility] Body temperature 2024-10-26 20:19:00 37.11 Abena [facility] Respiratory rate 2024-10-26 20:19:00 18 /min [facility] Body height 2024-10-26 20:19:00 165.1 cm [facility] Body weight 2024-10-26 20:19:00 106.595 kg [facility] BMI 2024-10-26 20:19:00 39.11 kg/m2 [facility] Oxygen saturation in Arterial blood by Pulse oximetry 2024-10-26 20:19:00 99 /min [facility] Systolic blood pressure 2018-12-30 07:28:10 125 mm[Hg] [facility] Diastolic blood pressure 2018-12-30 07:28:10 82 mm[Hg] [facility] Heart rate 2018-12-30 07:28:10 66 /min [facility] Respiratory rate 2018-12-30 07:28:10 16 /min [facility] Oxygen saturation in Arterial blood by Pulse oximetry 2018-12-30 07:28:10 99 /min [facility] Body temperature 2018-12-30 05:18:00 37.06 Abena [facility] Body height 2018-12-30 05:18:00 167.6 cm [facility] Body weight 2018-12-30 05:18:00 81.647 kg [facility] BMI 2018-12-30 05:18:00 29.05 kg/m2 [facility] Weight Measured 2024-12-04 15:00:00 235.00 pounds Kaleb Cerrato Height Measured 2024-12-04 15:00:00 65.12 inches Kaleb Corbin Cerrato Body Temperature 2024-12-04 15:00:00 97.20 degrees Kaleb Corbin Cerrato Heart Rate 2024-12-04 15:00:00 86.00 /min Kyra en F Saqib Respiratory Rate 2024-12-04 15:00:00 16.00 /min Kaleb F Saqib BP Systolic 2024-12-04 15:00:00 130 mm[Hg] Step hen F Saqib BP Diastolic 2024-12-04 15:00:00 91 mm[Hg] Diomedes phen F Saqib Procedures Procedure Date / Time Performed Performing Clinician Source CT ABDOMEN PELVIS WO CONTRAST 2018-12-30 07:19:18 Eugene Mckeon [facility] POCT TEST 2018-12-30 06:36:00 Eugene Mckeon [facility] LIPASE 2018-12-30 06:35:00 Eugene Mckeon [facility] COMP. METABOLIC PANEL (89335) 2018-12-30 06:35:00 Eugene Mckeon [facility] CBC WITH DIFFERENTIAL 2018-12-30 06:35:00 Elton Mckeon [facility] URINALYSIS 2018-12-30 06:28:00 Eugene Mckeon [facility] Encounters Start Date/Time End Date/Time Encounter Type Admission Type Attending [facility] Care Department Encounter ID Source 2024-12-04 14:48:59 2024-12-04 14:48:59 Outpatient [facility] [id number] Kaleb Cerrato 2024-12-04 00:00:00 2024-12-04 00:00:00 Outpatient Visit [facility] [id number] Kaleb Cerrato 2024-10-26 15:24:00 2024-10-26 16:53:00 Emergency X [facility] ERT [id number] [facility] 2018-12-30 00:11:45 2018-12-30 04:41:00 Emergency Eugene Mckeon [facility] [id number] [facility] Results Test Description Test Time Test Comments Results Result Co mments Source [facility]* Test Item Value Reference Range Interpretation Comme nts LIPASE (test code = 8777333455) 121 U/L 0-220 Lab Interpretation (test cod e = 03236-2) Normal [facility] (89111)2018-12-30 07:04:00* Test Item Value Reference Range Interpretation Comme nts NA (test code = 1893676560) 142 mmol/L 135-145 K (test code = 4438846746) 4.0 mmol/L 3.5-5 CL (test code = 8883290179) 106 mmol/L 98-108 CO2 TOTAL (test code = 6704170004) 25 mmol/L 23-31 AGAP (test code = 4876268482) 2-16 BUN (test code = 1785905764) 15 mg/dL 7-23 GLUCOSE (test code = 1619311981) 116 mg/dL 70-110 H CREATININE (test code = 0834438519) 0.94 mg/dL 0.5-1.04 TOTAL BILI (test code = 6850623479) 0.3 mg/dL 0.1-1.1 CALCIUM (test code = 3744804526) 9.1 mg/dL 8.6-10.6 T PROTEIN (test code = 5104931288) 7.9 g/dL 6.3-8.2 ALBUMIN (test code = 8709137187) 4.5 g/dL 3.5-5 ALK PHOS (test code = 5009470690) 88 U/L 34-122 ALT(SGPT) (test code = 6069833971) 27 U/L 9-51 AST(SGOT) (test code = 8531568718) 19 U/L 13-40 eGFR Calculation (Non-) (test code = 7852412922) mL/min/1.73m2 eGFR Calculation () (test code = 7739313363) mL/min/1.73m2 CLAYTON (test code = CLAYTON) Association of Glomerular Filtration Rate (GFR) and Staging of Kidney Disease*+ + + +| GFR (mL/min/1.73 m2)?| With Kidney Damage?|?Without Kidney Damage+ --------+ --------+ +|?>90?|?S tage one?|? Normal?+ ---------+ ---------+ +|?60-89? |?Stage two?|? Decreased GFR? + --+ --+ ------+|?30-59?|?Stage three?|? Stage three? + --+ --+ ------+|?15-29?|?Stage four? |? Stage four?+ -------+ -------+ +|?<15 (or dialysis)?|?Stage five? |? Stage five?+ -------+ -------+ +*Each stage assumes the associated GFR level has been in effect for at least three months.?Stages 1 to 5, with or without kidney disease, indicate chronic kidney disease.Notes: Determination of stages one and two (with eGFR >59mL/min/1.73 m2) requires estimation of kidney damage for at least three months as defined by structural or functional abnormalities of the kidney, manifested by either:Pathological abnormalities or Markers of kidney damage (including abnormalities in the composition of the blood or urine or abnormalities in imaging tests). Lab Interpretation (test code = 50880-4) Abnormal [facility] WITH [id number] 06:51:00* Test Item Value Reference Range Interpretation Comme nts WBC (test code = 6690-2) See_Comment [Automated [employer]] The system which generated this result transmitted reference range: 4.30 - 11.10 10*3/?L. The reference range was not used to interpret this result as normal/abnormal. RBC (test code = 789-8) See_Comment [Automated [employer] ge] The system which generated this result transmitted reference range: 3.93 - 5.25 10*6/?L. The reference range was not used to interpret this result as normal/abnormal. HGB (test code = 718-7) 14.7 g/dL 11.6-15 HCT (test code = 4544-3) 43.2 % 35.7-45.2 MCV (test code = 787-2) 93.1 fL 80.6-95.5 MCH (test code = 785-6) 31.7 pg 25.9-32.8 MCHC (test code = 786-4) 34.0 g/dL 31.6-35.1 RDW-SD (test code = 02666-7) 41.7 fL 39-49.9 RDW-CV (test code = 788-0) 12.1 % 12-15.5 PLT (test code = 777-3) See_Comment [Automated [employer] Rachio] The system which generated this result transmitted reference range: 166 - 358 10*3/?L. The reference range was not used to interpret this result as normal/abnormal. MPV (test code = 90644-4) 11.5 fL 9.5-12.9 NRBC/100 WBC (test code = 4165686287) See_Comment [Automated [employer] ssage] The system which generated this result transmitted reference range: 0.0 - 10.0 /100 WBCs. The reference range was not used to interpret this result as normal/abnormal. NRBC x10^3 (test code = 8341227830) <0.01 See_Comment [Automated [employer] ssage] The system which generated this result transmitted reference range: 10*3/?L. The reference range was not used to interpret this result as normal/abnormal. GRAN MAT (NEUT) % (test code = 770-8) 56.3 % IMM GRAN % (test code = 5366252611) 0.50 % LYMPH % (test code = 736-9) 33.0 % MONO % (test code = 5905-5) 8.6 % EOS % (test code = 713-8) 1.2 % BASO % (test code = 706-2) 0.4 % GRAN MAT x10^3(ANC) (test code = 6203629133) 4.21 10*3/uL 1.88-7.09 IMM GRAN x10^3 (test code = 9299716004) 0.04 10*3/uL 0-0.06 LYMPH x10^3 (test code = 731-0) 2.47 10*3/uL 1.32-3.29 MONO x10^3 (test code = 742-7) 0.64 10*3/uL 0.33-0.92 EOS x10^3 (test code = 711-2) 0.09 10*3/uL 0.03-0.39 BASO x10^3 (test code = 704-7) 0.03 10*3/uL 0.01-0.07 [id number] 06:36:00* Test Item Value Reference Range Interpretation Comme nts POCT PREG (test code = 1605) Negative On board controls acceptable with C Line (test code = 3574) Present POCT PREG LOT # (test code = 3575) [id number] POCT PREG TEST DATE ( test code = 3576) 05/30/2020 Lab Interpretation (test cod e = 73988-4) Normal [facility] Notes Date/Time Note Provider Source Kaleb Ayers [facility]2025-05-29 16:48:00 PT ELOPE PRIOR TO DISPO. LAST SEEN IN STABLE CONDITION, AOx4, NO ATAXIA NOTED. PT DID NOT NOTIFY STAFF OR SIGN AMA PAPERS. [facility] Cost[id number] 16:47:00 Attempt to Call from lobby again with no response. [id number] 16:22:18 Attempted to call pt from lobby by provider and ED staff, no response. [facility]207[facility] 15:16:16 Ashwini Cartwright is a 34 year old female arrived to ED via personal means with CC of yeast infection x 10/24/23 Seen at [place] ED and given "10day medication" told she should feel better and its getting worse. Elizabeth Armstrong [facility]
[2025-02-14] MEDS ORDERED: NA CHLORIDE 0.9% 1,000 ML ONE (19:58)
[2025-02-14] MEDS ORDERED: KETOROLAC 30 MG/ML INJ ONE (19:58)
[2025-02-14 20:24] LABS: Absolute Lymphocytes (CBC) 1.2 K/uL (0.7-4.9); Hematocrit 43.1 % (36.0-45.0); Hemoglobin 15.1 g/dL (12.0-15.0); MCH 31.9 pg (27.0-35.0); MCHC 34.9 g/dL (32.0-36.0); MCV 91.4 fL (80-100); MPV 9.1 fL (7.6-11.3); Nucleated RBC Absolute Count 0.0 (0-0); Nucleated Red Blood Cells % 0.9 % (0-0); RBC Red Blood Cell Count 4.72 M/uL (3.86-4.86); White Blood Count 3.30 thou/uL (4.3-10.9)
--- NOTE | 2025-02-14 20:47 | RAD REPORT ---
Transvaginal Study Probe CLINICAL INDICATION: Female 34 years old lower abdomen cramping TECHNIQUE: Real-time ultrasonography of the pelvis was performed transvaginally. Color and spectral D oppler evaluation of the ovaries was performed. [id number]. COMPARISON: No prior exam. FINDINGS: UTERUS AND CERVIX: Hysterectomy. RIGHT OVARY: Complex cyst in the right ovary with low-level internal echoes measuring 3.4 x 2.3 cm. T he right ovary measures 4.7 x 3.8 x 3.5 cm with volume of 33 mL. Normal color and spectral Doppler evaluation of the right ovary.. LEFT OVARY: Simple appearing left ovarian cyst measuring 3.5 x 3.1 cm. Follow-up is not required. T he left ovary measures 4.5 x 3.9 x 3.6 cm with volume of 33 mL. Normal Color and spectral Doppler evaluation of the left ovary.. FREE FLUID: No free fluid. IMPRESSION: 1. Simple left and minimally complicated right ovarian cysts. Neither require follow-up. 2. Bilateral ovarian blood flow. 3. Hysterectomy.
[2025-02-14 20:57] LABS: ALT/SGPT 98.0 U/L (13-56); AST/SGOT 48.0 U/L (15-37); Albumin 3.7 g/dL (3.4-5.0); Albumin/Globulin Ratio 0.9 (1.1-1.8); Alkaline Phosphatase 86.0 U/L (45-117); Anion Gap 8.7 mEq/L (5.0-15.0); BUN Blood Urea Nitrogen 12.0 mg/dL (7-18); Globulin 4.2 g/dL (2.3-3.5); Glucose Level 109.0 mg/dL (74-106); Lipase 30.0 U/L (13-75); Potassium 3.7 mEq/L (3.5-5.1)
--- NOTE | 2025-02-14 21:11 | ER ---
Nurse's Notes [facility] Anyi Name: Charli Mancilla Age: 34 yrs Sex: Female : 1990 Arrival Date: 02/14/2025 Time: 19:26 Bed 5 Private MD: Diagnosis: Lower abdominal pain, unspecified Presentation: 02/14 19:43 Chief complaint: Patient states: c/o cramping to RLQ and LLQ that radiates to lower me1 back, 6/10, started last night. Also c/o SPENCER and n/v. Report she had a partial hysterectomy but still has periods. Coronavirus screen: Vaccine status: Patient reports receiving the 2nd dose of the covid vaccine. Ebola Screen: No symptoms or risks identified at this time. Initial Sepsis Screen: Does the patient meet any 2 criteria? No. Patient's initial sepsis screen is negative. Does the patient have a suspected source of infection? No. Patient's initial sepsis screen is negative. Risk Assessment: Do you want to hurt yourself or someone else? Patient reports no desire to harm self or others. Onset of symptoms was February 13, 2025. 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 - Infectious Disease History:: Denies. - Social history:: Smoking status: Patient denies any tobacco usage or history of. Screenin:23 [facility] ED Fall Risk Assessment (Adult) History of falling in the last 3 months, cc6 including since admission No falls in past 3 months (0 pts) Confusion or Disorientation No (0 pts) Intoxicated or Sedated No (0 pts) Impaired Gait No (0 pts) Mobility Assist Device Used No (0 pt) Altered Elimination No (0 pt) Score/Fall Risk Level 0 - 2 = Low Risk Oriented to surroundings, Maintained a safe environment, Educated pt \T\ family on fall prevention, incl call for assistance when getting out of bed. Abuse screen: Denies threats or abuse. Denies injuries from another. Nutritional screening: No deficits noted. Tuberculosis screening: No symptoms or risk factors identified. Assessment: 19:47 General: Appears in no apparent distress. comfortable, Behavior is calm, cooperative. cc6 Pain: Complains of pain in right lower quadrant and left lower quadrant Pain radiates to low back area, left low back and right low back Pain currently is 6 out of 10 on a pain scale. Quality of pain is described as crampy, Pain began 1 day ago. Neuro: Level of Consciousness is awake, alert, obeys commands, Oriented to person, place, time, situation. Cardiovascular: Patient's skin is warm and dry. Respiratory: Airway is patent Respiratory effort is even, unlabored, Respiratory pattern is regular, symmetrical. GI: Bowel sounds present X 4 quads. Abd is soft and non tender X 4 quads. Reports cramping, PAIN DURING INTERCOURSE. Vital Signs: 19:43 BP 146 / 108; Pulse 89; Resp 19; Temp 98.2; Pulse Ox 100% ; Weight 99.79 kg; Height 5 me1 ft. 5 in. ; Pain 6/10; 21:22 BP 135 / 93; Pulse 84; Pulse Ox 100% ; cc6 19:43 Body Mass Index 36.61 (99.79 kg, 165.1 cm) mo1 19:43 Pain Scale: Adult [facility] ED Course: 19:28 Patient arrived in ED. mr 19:28 Sesar Graham PA-C [facility] cp 19:28 Sesar Infante MD is Attending Physician. cp 19:33 Provided Education on: USE OF CALL LIGHT. cc6 19:46 Triage completed. mo1 19:46 Arm band placed on Patient placed in an exam room. me1 19:47 Anaya Rodriguez, PRISCILA is Primary Nurse. cc6 20:16 CBC with Diff Sent. cc6 20:16 CMP Sent. cc6 20:16 Lipase Sent. cc6 20:20 Inserted saline lock: 22 gauge in right antecubital area, using aseptic technique. cc6 Blood collected. Flushed with 10 mL NS. 21:09 Transvaginal Study Probe In Process Unspecified. EDMS 21:23 Patient has correct armband on for positive identification. Bed in low position. Call cc6 light in reach. Side rails up X 1. 21:23 No provider procedures requiring assistance completed. IV discontinued, intact, cc6 bleeding controlled, No redness/swelling at site. Pressure dressing applied. Administered Medications: 20:15 Drug: NS 0.9% IV 1000 ml IV at 1 bolus Per protocol; to be given as a bolus over 60 cc6 minutes Route: IV; Rate: 1 bolus; Site: right antecubital; 21:26 Follow up: IV Status: Completed infusion cc6 20:16 Drug: TORadol - Ketorolac IVP 15 mg IVP once Route: IVP; Site: right antecubital; cc6 20:33 Follow up: Response: No adverse reaction; Pain is decreased cc6 Medication: 21:24 VIS not applicable for this client. cc6 Outcome: 21:06 Discharge ordered by . claudine 21:24 Discharged to home ambulatory, cc6 21:24 Condition: stable 21:24 Discharge instructions given to patient, Instructed on discharge instructions, follow up and referral plans. Demonstrated understanding of instructions, follow-up care, 21:27 Patient left the ED. cc6 Signatures: Dispatcher [employer] Obdulia Keita, Reg Reg Sesar Graham, PA-C PA-C Kaci Saldana, RN RN me1 Anaya Rodriguez, RN RN cc6 Corrections: (The following items were deleted from the chart) 19:46 19:46 PSHx: Total abdominal hysterectomy; me1 me1
--- NOTE | 2025-02-14 21:11 | EDPHYS ---
Physician Documentation [facility] Name: Charli Mancilla Age: 34 yrs Sex: Female : 1990 Arrival Date: 02/14/2025 Time: 19:26 Bed 5 Private MD: ED Physician Sesar Infante HPI: 02/14 19:50 This 34 yrs old Female presents to ER via Ambulatory with complaints of Abdominal Pain. cp 19:50 The patient presents with abdominal pain in the lower abdomen. The symptoms are cp described as crampy. 19:50 Onset: The symptoms/episode began/occurred last night. cp 19:50 The symptoms radiate to low back area. cp 19:50 Associated signs and symptoms: Pertinent positives: intermittent vaginal bleeding since cp partial hysterectomy, Pertinent negatives: anorexia, constipation, diarrhea, fever, active vaginal bleeding, active vaginal discharge. Severity of pain: in the emergency department the pain is unchanged despite home interventions. 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 - Infectious Disease History:: Denies. - Social history:: Smoking status: Patient denies any tobacco usage or history of. ROS: 19:55 Constitutional: Negative for body aches, chills, fever, poor PO intake, cp 19:55 Eyes: Negative for injury, pain, redness, and discharge, cp 19:55 ENT: Negative for drainage from ear(s), ear pain, sore throat, difficulty swallowing, difficulty handling secretions, 19:55 Abdomen/GI: Positive for abdominal pain, of the right lower quadrant and left lower quadrant, Negative for vomiting, diarrhea, constipation, 19:55 Back: Positive for radiated pain, of the low back area, 19:55 : Negative for urinary symptoms, pelvic pain, vaginal bleeding, vaginal discharge, 19:55 Neuro: Negative for weakness, 19:55 All other systems are negative, Exam: 20:00 Constitutional: The patient appears in no acute distress, alert, awake, non-toxic, well cp developed, well nourished, uncomfortable, 20:00 Head/Face: Normocephalic, atraumatic. cp 20:00 Eyes: Periorbital structures: appear normal, Conjunctiva: normal, no exudate, no injection, Sclera: no appreciated abnormality, Lids and lashes: appear normal, bilaterally, 20:00 ENT: External ear(s): are unremarkable, Nose: is normal, Mouth: Lips: moist, Oral mucosa: moist, Posterior pharynx: Airway: no evidence of obstruction, patent, 20:00 Chest/axilla: Inspection: normal, 20:00 Cardiovascular: Rate: normal, Rhythm: regular, 20:00 Respiratory: the patient does not display signs of respiratory distress, Respirations: normal, no use of accessory muscles, no retractions, labored breathing, is not present, Breath sounds: are clear throughout, no decreased breath sounds, no stridor, no wheezing, 20:00 Abdomen/GI: Inspection: abdomen appears normal, Bowel sounds: active, all quadrants, Palpation: soft, in all quadrants, moderate abdominal tenderness, in the right lower quadrant and left lower quadrant, rebound tenderness, is not appreciated, involuntary guarding, is not appreciated, 20:00 Back: CVA tenderness, is absent, 20:00 Neuro: Orientation: to person, place \T\ time. Mentation: is normal, Motor: moves all fours, strength is normal, Sensation: is normal, Vital Signs: 19:43 BP 146 / 108; Pulse 89; Resp 19; Temp 98.2; Pulse Ox 100% ; Weight 99.79 kg; Height 5 me1 ft. 5 in. ; Pain 6/10; 21:22 BP 135 / 93; Pulse 84; Pulse Ox 100% ; cc6 19:43 Body Mass Index 36.61 (99.79 kg, 165.1 cm) me1 19:43 Pain Scale: Adult me1 MDM: 19:35 Medical Screening Exam initiated cp 21:05 Data reviewed: vital signs, nurses notes. cp 21:05 Differential diagnosis: appendicitis, Endometriosis, non-specific abd pain, Ovarian cp Torsion, Pyelonephritis, Ureterolithiasis, urinary tract infection. ED course: Vital signs stable. 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 I informed her I have the instructional technology teacher preliminary results of her ultrasound that showed concern she has less than 5 cm cyst on bilateral ovaries but that I am waiting for the official radiologist interpretation. I informed her I suspect that it may be at least another hour until I get results of labs and the radiologist interpretation of her ultrasound. Patient still insistent that she has to be discharged and that she is understanding that if symptoms change or worsen that she can return to the emergency department for reevaluation. I did discuss with her that the ED even though I do not have any official results at this time of her test but I do recommend urgent follow-up due to the reported vaginal bleeding and reported history of partial hysterectomy and my concern for possible cervical dysplasia as the cause of bleeding. 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 02/14 19:46 Order name: CBC with Diff cp 02/14 19:46 Order name: CMP; Complete Time: 19:29 cp 02/15 19:30 Interpretation: Normal except: GLUC 109; CRE 1.41; GFR 50; AST 48; ALT 98; GLOB 4.2; cp A/G 0.9. 02/14 19:46 Order name: Lipase; Complete Time: 19:29 cp 02/14 20:28 Order name: Transvaginal Study Probe EDMS 02/14 19:46 Order name: IV Saline Lock; Complete Time: 20:16 cp 02/14 19:46 Order name: Labs collected and sent; Complete Time: 20:16 cp Administered Medications: 02/14 20:15 Drug: NS 0.9% IV 1000 ml IV at 1 bolus Per protocol; to be given as a bolus over 60 cc6 minutes Route: IV; Rate: 1 bolus; Site: right antecubital; 21:26 Follow up: IV Status: Completed infusion cc6 20:16 Drug: TORadol - Ketorolac IVP 15 mg IVP once Route: IVP; Site: right antecubital; cc6 20:33 Follow up: Response: No adverse reaction; Pain is decreased cc6 Disposition Summary: 02/14/25 21:06 Discharge Ordered Notes: Location: Home cp Problem: new cp Symptoms: are unchanged cp Condition: Stable cp Diagnosis - Lower abdominal pain, unspecified cp Followup: cp - With: Private Physician - When: 2 - 3 days - Reason: symptoms continue Discharge Instructions: - Discharge Summary Sheet cp - Abdominal Pain, Adult cp Forms: - Medication Reconciliation Form cp - Antibiotic Education cp - Prescription Opioid Use cp - Patient Portal Instructions cp - Leadership Thank You Letter cp Addendum: 02/19/2025 11:37 Co-signature as Attending Physician, Sesar Infante MD I agree with the assessment and c dykes plan of care. Signatures: Dispatcher [employer] EDCO Sesar Infante MD MD cha Page, Corey, PA-C PA-C Kaci Saldana, RN RN me1 Anaya Rodriguez RN RN cc6 Corrections: (The following items were deleted from the chart) 02/14 19:36 19:36 Test, Urine+UC.LAB.BRZ ordered. EDCO EDCO 19:36 19:36 UA Rfx Héctor Cult if indicated+U.LAB.BRZ ordered. EDCO EDMS 19:46 19:46 PSHx: Total abdominal hysterectomy; me1 me1 20:28 19:46 Pelvis Complete+US.RAD.BRZ ordered. EDCO EDMS 20:29 20:29 TEST, SERUM+SC.LAB.BRZ ordered. EDCO EDCO 02/15 19:32 02/14 19:50 The symptoms radiate to cp cp
[2025-02-14 21:31] VITALS: TEMP 98.2; O2SAT 100
[2025-02-14 21:33] VITALS: BP 135/93
== END 2025-02-14 21:27 | disposition home or self-care (01) ==
LOC: ER 19:26
DX: R10.31 Right lower quadrant pain (principal); R10.32 Left lower quadrant pain
CPT/HCPCS: 36415; 76830; 80053; 83690; 85025; 96361; 96374; 99284; J7030

== ENCOUNTER 2025-02-23 04:33 | Emergency (ER) | payer SELFPAY ==
--- OUTSIDE RECORDS SUMMARY | 2025-02-23 04:36 | XMS REPORT | Continuity of Care Document ---
Author Name Unknown Address [address] [place] [address] [facility] [place] Address [address] [place] [address] Care Team Providers Care General House Worker Name Role Phone Randi Hassan Primary Care Physician [phone] SHAHAB ARENAS Attending Clinician Unavailab FLIP Garvin Attending Clinician Unavailab jerman [email or web address]_Q Attending Clinician UnavailEugene Banda MD Attending Clinician [email or web address]_Q Admitting Clinician Kyree corral Payers Payer Name Policy Type Policy Number Effective Date Expirati on Date Source [place] [id number] 2014 00:00:00 [place] [id number] Allergies, Adverse Reactions, Alerts Allergy Name Allergy Type Status Severity Reaction(s) Onset Date Inactive Date Treating Clinician Comments Source amoxicil joaquim (Not Checked) Propensi ty to adverse reaction to drug Active 12-04 00:00: 00 Kaleb Cerrato Amoxicil joaquim Propensi ty to adverse reaction s Active Itching 11-30 00:00: 00 [facility] acute hospital AMOXICIL JOAQUIM DRUG INGREDI Active ITCHING 11-30 00:00: 00 [facility] acute hospital Social History Social Habit Start Date Stop Date Quantity Comments Source ASSERTION Possible [facility] 1990 [facility]:00 1990 00:00:00 [facility] Smoking Status Start Date Stop Date Source Tobacco smoking consumption unknown [facility] Medications Ordered Medication Name Filled Medication Name Start Date Stop Date Current Medication? Ordering Clinician Indication Dosage Frequency Signature (SIG) Comments Components Source ketorolac (TORADOL) injection 30 mg 12-30 07:30: 00 12-30 06:36 :00 No 30mg 30 mg, Slow IV Push, ONCE, 1 dose, Wed12/30/18 at 0230, Routine
[employer] membership advisors approving Restricted medication : EUGENE MCKEON [facility] acute hospital ibuprofen 800 mg tablet 12-30 00:00: 00 Yes [id number] 800mg Take 1 tablet by mouth every 8 (eight) hours as needed (PAIN). [facility] acute hospital Immunizations Ordered Immunization Name Filled Immunization Name Date Status Comments Source Influenza, seasonal, inj Influenza, seasonal, inj 2019-07-06 00:00:00 Completed Kaleb Cerrato Vital Signs Vital Name Observation Time Observation Value Comments S randy Systolic blood pressure 2024-10-26 20:19:00 134 mm[Hg] [facility] Diastolic blood pressure 2024-10-26 20:19:00 88 mm[Hg] [facility] Heart rate 2024-10-26 20:19:00 96 /min [facility] Body temperature 2024-10-26 20:19:[address] [facility] Respiratory rate 2024-10-26 20:19:00 18 /min [facility] Body height 2024-10-26 20:19:00 165.1 cm [facility] Body weight 2024-10-26 20:19:00 106.595 kg [facility] BMI 2024-10-26 20:19:00 39.11 kg/m2 [facility] Oxygen saturation in Arterial blood by Pulse oximetry 2024-10-26 20:19:00 99 /min [facility] Systolic blood pressure 2018-12-30 07:28:10 125 mm[Hg] [facility] Diastolic blood pressure 2018-12-30 07:28:10 82 mm[Hg] [facility] Heart rate 2018-12-30 07:28:10 66 /min [facility] Respiratory rate 2018-12-30 07:28:10 16 /min [facility] Oxygen saturation in Arterial blood by Pulse oximetry 2018-12-30 07:28:10 99 /min [facility] Body temperature 2018-12-30 05:18:[address] [facility] Body height 2018-12-30 05:18:00 167.6 cm [facility] Body weight 2018-12-30 05:18:00 81.647 kg [facility] BMI 2018-12-30 05:18:00 29.05 kg/m2 [facility] Respiratory Rate 2024-12-04 15:00:00 16.00 /min Kaleb Cerrato BP Systolic 2024-12-04 15:00:00 130 mm[Hg] Samir hen Corbin Cerrato BP Diastolic 2024-12-04 15:00:00 91 mm[Hg] Diomedes phen Corbin Cerrato Weight Measured 2024-12-04 15:00:00 235.00 pounds Kaleb Cerrato Height Measured 2024-12-04 15:00:00 65.12 inches Kaleb Cerrato Body Temperature 2024-12-04 15:00:00 97.20 degrees Kaleb Cerrato Heart Rate 2024-12-04 15:00:00 86.00 /min Kyra en Corbin Cerrato Procedures Procedure Date / Time Performed Performing Clinician Source CT ABDOMEN PELVIS WO CONTRAST 2018-12-30 07:19:[address] [facility] POCT TEST 2018-12-30 06:36:[address] [facility] LIPASE 2018-12-30 06:35:00 Eugene Mckeon [facility] COMP. METABOLIC PANEL (34802) 2018-12-30 06:35:[address] [facility] CBC WITH DIFFERENTIAL 2018-12-30 06:35:[address] [facility] URINALYSIS 2018-12-30 06:28:00 Eugene Mckeon [facility] Encounters Start Date/Time End Date/Time Encounter Type Admission Type Attending [facility] Facility Care Department Encounter ID Source 2025-02-13 16:30:00 2025-02-13 16:30:00 Outpatient SHAHAB ARENAS [id number] Margaret Gabriel 2024-12-04 14:48:59 2024-12-04 14:48:59 Outpatient SFA SFA [id number] Kaleb Cerrato 2024-12-04 00:00:00 2024-12-04 00:00:00 Outpatient Visit SFA [id number] Kaleb Cerrato 2024-10-26 15:24:00 2024-10-26 16:53:00 Emergency X FLIP [facility]LLERS [facility] ERT [id number] General acute hospital 2018-12-30 00:11:45 2018-12-30 04:41:00 Emergency Eugene Mckeon [facility] [id number] General acute hospital Results Test Description Test Time Test Comments Results Result Co mments Source [facility]-08[facility] 07:04:00* Test Item Value Reference Range Interpretation Comme nts LIPASE (test code = 1425110342) 121 U/L 0-220 Lab Interpretation (test cod e = 12922-5) Normal [facility] (05808)2018-12-30 07:04:00* Test Item Value Reference Range Interpretation Comme nts NA (test code = 1306025492) 142 mmol/L 135-145 K (test code = 0768621607) 4.0 mmol/L 3.5-5 CL (test code = 7094803147) 106 mmol/L 98-108 CO2 TOTAL (test code = 7469458027) 25 mmol/L 23-31 AGAP (test code = 1071665241) 2-16 BUN (test code = 9157138792) 15 mg/dL 7-23 GLUCOSE (test code = 3325198577) 116 mg/dL 70-110 H CREATININE (test code = 5906008879) 0.94 mg/dL 0.5-1.04 TOTAL BILI (test code = 5932789013) 0.3 mg/dL 0.1-1.1 CALCIUM (test code = 2200818546) 9.1 mg/dL 8.6-10.6 T PROTEIN (test code = 5112578349) 7.9 g/dL 6.3-8.2 ALBUMIN (test code = 7604564349) 4.5 g/dL 3.5-5 ALK PHOS (test code = 7422218589) 88 U/L 34-122 ALT(SGPT) (test code = 8590885788) 27 U/L 9-51 AST(SGOT) (test code = 3528823813) 19 U/L 13-40 eGFR Calculation (Non-) (test code = 3527028068) mL/min/1.73m2 eGFR Calculation () (test code = 7107311518) mL/min/1.73m2 CLAYTON (test code = CLAYTON) Association of Glomerular Filtration Rate (GFR) and Staging of Kidney Disease*+ + + +| GFR (mL/min/1.73 m2)?| With Kidney Damage?|?Without Kidney Damage+ --------+ --------+ +|?>90?|?S adrianae one?|? Normal?+ ---------+ ---------+ +|?60-89? |?Stage two?|? [...] imaging tests). Lab Interpretation (test code = 30093-3) Abnormal [facility] WITH [id number] 06:51:00* Test Item Value Reference Range Interpretation Comme nts WBC (test code = 6690-2) See_Comment [Automated messa ge] The system which generated this result transmitted reference range: 4.30 - 11.10 10*3/?L. The reference range was not used to interpret this result as normal/abnormal. RBC (test code = 789-8) See_Comment [Automated RECESS.a ge] The system which generated this result [...] 34.0 g/dL 31.6-35.1 RDW-SD (test code = 23467-1) 41.7 fL 39-49.9 RDW-CV (test code = 788-0) 12.1 % 12-15.5 PLT (test code = 777-3) See_Comment [Automated messa ge] The system which generated this result transmitted reference range: 166 - 358 10*3/?L. The reference range was not used to interpret this result as normal/abnormal. MPV (test code = 65004-8) 11.5 fL 9.5-12.9 NRBC/100 WBC (test code = 3837068228) See_Comment [Automated me ssage] The system which generated this result transmitted reference range: 0.0 - 10.0 /100 WBCs. The reference range was not used to interpret this result as normal/abnormal. NRBC x10^3 (test code = 3001886152) <0.01 See_Comment [Automated me ssage] The system which generated this result transmitted reference range: 10*3/?L. The reference range was not used to interpret this result as normal/abnormal. GRAN MAT (NEUT) % (test code = 770-8) 56.3 % IMM GRAN % (test code = 1545801747) 0.50 % LYMPH % (test code = 736-9) 33.0 % MONO % (test code = 5905-5) 8.6 % EOS % (test code = 713-8) 1.2 % BASO % (test code = 706-2) 0.4 % GRAN MAT x10^3(ANC) (test code = 7374640943) 4.21 10*3/uL 1.88-7.09 IMM GRAN x10^3 (test code = 4091326756) 0.04 10*3/uL 0-0.06 LYMPH x10^3 (test code = 731-0) 2.47 10*3/uL 1.32-3.29 MONO x10^3 (test code = 742-7) 0.64 10*3/uL 0.33-0.92 EOS x10^3 (test code = 711-2) 0.09 10*3/uL 0.03-0.39 BASO x10^3 (test code = 704-7) 0.03 10*3/uL 0.01-0.07 [facility] [id number] 06:36:00* Test Item Value Reference Range Interpretation Comme nts POCT PREG (test code = 1605) Negative On board controls acceptable with C Line (test code = 3574) Present POCT PREG LOT # (test code = 3575) [id number] POCT PREG TEST DATE ( test code = 3576) 05/30/2020 Lab Interpretation (test cod e = 71458-1) Normal [facility] Notes Date/Time Note Provider Source Kaleb Ayers [facility]2025-05-29 16:48:00 PT ELOPE PRIOR TO DISPO. LAST SEEN IN STABLE CONDITION, AOx4, NO ATAXIA NOTED. PT DID NOT NOTIFY STAFF OR SIGN AMA PAPERS. [facility] 16:47[facility]00 Attempt to Call from lobby again with no response. [facility] 16:22:18 Attempted to call pt from jasmyne by provider and ED staff, no response. [facility] 15:16:16 Ashwini Cartwright is a 34 year old female arrived to ED via personal means with CC of yeast infection x 10/24/23 [facility]en at [facility] and given "10 medication" told she should feel better and its getting worse. [facility]
[2025-02-23] MEDS ORDERED: HYDROCODONE/APAP 5/325 MG TAB ONE (04:50)
--- NOTE | 2025-02-23 05:28 | ER ---
Nurse's Notes [facility] Name: Charli Mancilla Age: 35 yrs Sex: Female : 1990 Arrival Date: 02/23/2025 Time: 04:33 Bed 5 Private MD: Diagnosis: Internal derangement of the right knee Presentation: 02/23 04:44 Chief complaint: Patient states: I was wrestling with my boyfriend and I planted my bm8 foot and twisted my right knee outward. Now its feels like its wants to give out when ever I walk. 04:44 Coronavirus screen: At this time, the client does not indicate any symptoms associated bm8 with coronavirus-19. Ebola Screen: Patient negative for fever greater than or equal to 101.5 degrees Fahrenheit, and additional compatible Ebola Virus Disease symptoms Patient denies exposure to infectious person. Patient denies travel to an Ebola-affected area in the 21 days before illness onset. No symptoms or risks identified at this time. Initial Sepsis Screen: Does the patient meet any 2 criteria? No. Patient's initial sepsis screen is negative. Does the patient have a suspected source of infection? No. Patient's initial sepsis screen is negative. Risk Assessment: Do you want to hurt yourself or someone else? Patient reports no desire to harm self or others. Onset of symptoms was February 23, 2025 at 00:00. 04:44 Method Of Arrival: Wheelchair bm8 04:44 Acuity: MEGHAN 4 bm8 Triage Assessment: 04:44 General: Appears in no apparent distress. uncomfortable, Behavior is calm, cooperative, bm8 appropriate for age. Pain: Complains of pain in lateral aspect of right knee and right knee Pain currently is 7 out of 10 on a pain scale. Quality of pain is described as throbbing. EENT: No deficits noted. No signs and/or symptoms were reported regarding the EENT system. Neuro: No deficits noted. Level of Consciousness is awake, alert, obeys commands, Oriented to person, place, time, situation, Appropriate for age. 04:44 Cardiovascular: Denies chest pain, Capillary refill < 3 seconds in bilateral fingers bm8 Patient's skin is warm and dry. Respiratory: Airway is patent Trachea midline Respiratory effort is even, unlabored, Respiratory pattern is regular, symmetrical. GI: No deficits noted. No signs and/or symptoms were reported involving the gastrointestinal system. : No deficits noted. No signs and/or symptoms were reported regarding the genitourinary system. Derm: No deficits noted. No signs and/or symptoms reported regarding the dermatologic system. Musculoskeletal: Capillary refill < 3 seconds, in bilateral fingers. toes. Range of motion: limited in right knee Swelling present in right knee Reports pain in right knee since 0000. Pain is 7 out of 10 on a pain scale. Injury Description: see above. 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 - Infectious Disease History:: Denies. - Social history:: Smoking status: Patient denies any tobacco usage or history of. Patient/guardian denies using alcohol, street drugs. Screenin:[facility] ED Fall Risk Assessment (Adult) History of falling in the last 3 months, bm8 including since admission Yes- single mechanical fall (1 pt) Confusion or Disorientation No (0 pts) Intoxicated or Sedated No (0 pts) Impaired Gait Yes (1 pt) Mobility Assist Device Used Yes (1 pt) Altered Elimination No (0 pt) Score/Fall Risk Level 3 or more points = High Risk Oriented to surroundings, Maintained a safe environment, Educated pt \T\ family on fall prevention, incl call for assistance when getting out of bed, Assessed \T\ reinforced patient's understanding of fall precautions, Hourly rounding (assess needs \T\ fall precautionary measures) done, Used ambulatory aids as needed (educated on \T\ assisted with), Used gait belt as appropriate. Abuse screen: Denies threats or abuse. Nutritional screening: No deficits noted. Tuberculosis screening: No symptoms or risk factors identified. Assessment: 05:00 Reassessment: see triage assessment. bm8 05:51 Reassessment: Patient appears in no apparent distress at this time. Patient and/or bm8 family updated on plan of care and expected duration. Pain level reassessed. Patient is alert, oriented x 3, equal unlabored respirations, skin warm/dry/pink. Patient states feeling better. Patient states symptoms have improved. 05:52 Reassessment:. bm8 Vital Signs: 04:44 BP 123 / 89; Pulse 88; Resp 17; Temp 100.1; Pulse Ox 98% ; Weight 102.06 kg; Height 5 bm8 ft. 5 in. ; Pain 7/10; 05:51 BP 128 / 78; Pulse 68; Resp 17; Temp 98.5; Pulse Ox 100% ; Pain 4/10; bm8 04:44 Body Mass Index 37.44 (102.06 kg, 165.1 cm) bm8 04:44 Pain Scale: Adult bm8 05:51 Pain Scale: Adult bm8 [place] Coma Score: 05:00 Eye Response: spontaneous(4). Motor Response: obeys commands(6). Verbal Response: bm8 oriented(5). Total: 15. ED Course: 04:35 Patient arrived in ED. gm2 04:44 Arm band placed on right wrist. bm8 04:45 Yael Sauer MD is Attending Physician. sp3 04:53 Lewis Mendoza, RN is Primary Nurse. bm8 04:55 Triage completed. bm8 05:00 Patient has correct armband on for positive identification. Bed in low position. Call bm8 light in reach. Side rails up X 1. Adult w/ patient. Client placed on continuous cardiac and pulse oximetry monitoring. NIBP monitoring applied. Pulse ox on. NIBP on. Door closed. Noise minimized. Warm blanket given. Verbal reassurance given. Head of bed elevated. 05:00 No provider procedures requiring assistance completed. Patient maintains SpO2 bm8 saturation greater than 95% on room air. 05:16 XRAY Knee RIGHT 2 view In Process Unspecified. EDMS 05:28 Bertrand Gordon MD is Referral Physician. sp3 05:51 Provided Education on: post er care. bm8 05:51 Patient did not have IV access during this emergency room visit. Knee immobilizer bm8 applied on right knee. Administered Medications: 04:53 Drug: HYDROcodone-acetaminophen PO 5 mg-325 mg 2 tabs PO once Route: PO; ha1 05:51 Follow up: Response: No adverse reaction bm8 Medication: 05:00 VIS not applicable for this client. bm8 Outcome: 05:28 Discharge ordered by . sp3 05:54 Discharged to home ambulatory, with family, lg3 05:54 Condition: stable 05:54 Discharge instructions given to patient, Instructed on discharge instructions, follow up and referral plans. medication usage, Demonstrated understanding of instructions, follow-up care, medications, Prescriptions given X 1 05:54 Patient left the ED. lg3 Signatures: Dispatcher [employer] EDMS Adela Ronquillo RN RN lg3 Yael Sauer MD MD sp3 Brisa Mathis, RN RN ha1 Jessie Sosa 2 Lewis Mendoza, RN RN bm8
--- NOTE | 2025-02-23 05:28 | EDPHYS ---
Physician Documentation [facility] Name: Charli Mancilla Age: 35 yrs Sex: Female : 1990 Arrival Date: 02/23/2025 Time: 04:33 Bed 5 Private MD: ED Physician Yael Sauer HPI: 02/23 05:20 This 35 yrs old Female presents to ER via Wheelchair with complaints of Knee Injury. sp3 05:20 35-year-old female with history of only anxiety presents to the ED with chief complaint sp3 right knee pain after "wrestling around with her boyfriend". She has had prior micro ligamentous tears in the knee before. She reports mild swelling and ability to walk although it is painful. No other injury reported. ROS otherwise negative.. 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 - Infectious Disease History:: Denies. - Social history:: Smoking status: Patient denies any tobacco usage or history of. Patient/guardian denies using alcohol, street drugs. ROS: 05:23 Constitutional: Negative for fever, chills, and weight loss, Eyes: Negative for injury, sp3 pain, redness, and discharge, ENT: Negative for injury, pain, and discharge, Neck: Negative for injury, pain, and swelling, Cardiovascular: Negative for chest pain, palpitations, and edema, Respiratory: Negative for shortness of breath, cough, wheezing, and pleuritic chest pain, Abdomen/GI: Negative for abdominal pain, nausea, vomiting, diarrhea, and constipation, Back: Negative for injury and pain, Skin: Negative for injury, rash, and discoloration, Neuro: Negative for headache, weakness, numbness, tingling, and seizure, Psych: Negative for depression, anxiety, suicide ideation, homicidal ideation, and hallucinations, Allergy/Immunology: Negative for hives, rash, and allergies, Endocrine: Negative for neck swelling, polydipsia, polyuria, polyphagia, and marked weight changes, 05:23 All other systems are negative, Exam: 05:25 Constitutional: This is a well developed, well nourished patient who is awake, alert, sp3 and in no acute distress. Head/Face: Normocephalic, atraumatic. Eyes: Pupils equal round and reactive to light, extra-ocular motions intact. Lids and lashes normal. Conjunctiva and sclera are non-icteric and not injected. Cornea within normal limits. Periorbital areas with no swelling, redness, or edema. Neck: Trachea midline, no thyromegaly or masses palpated, and no cervical lymphadenopathy. Supple, full range of motion without nuchal rigidity, or vertebral point tenderness. No Meningismus. Chest/axilla: Normal chest wall appearance and motion. Nontender with no deformity. No lesions are appreciated. Cardiovascular: Regular rate and rhythm with a normal S1 and S2. No gallops, murmurs, or rubs. Normal PMI, no JVD. No pulse deficits. Respiratory: Lungs have equal breath sounds bilaterally, clear to auscultation and percussion. No rales, rhonchi or wheezes noted. No increased work of breathing, no retractions or nasal flaring. Abdomen/GI: Soft, non-tender, with normal bowel sounds. No distension or tympany. No guarding or rebound. No evidence of tenderness throughout. Back: No spinal tenderness. No costovertebral tenderness. Full range of motion. Skin: Warm, dry with normal turgor. Normal color with no rashes, no lesions, and no evidence of cellulitis. Neuro: Awake and alert, GCS 15, oriented to person, place, time, and situation. Cranial nerves II-XII grossly intact. Motor strength 5/5 in all extremities. Sensory grossly intact. Cerebellar exam normal. Normal gait. Psych: Awake, alert, with orientation to person, place and time. Behavior, mood, and affect are within normal limits. 05:25 Musculoskeletal/extremity: Mild swelling noted to the right knee. No ligamentous laxity. Distal neurovascular exam is normal.. Vital Signs: 04:44 BP 123 / 89; Pulse 88; Resp 17; Temp 100.1; Pulse Ox 98% ; Weight 102.06 kg; Height 5 bm8 ft. 5 in. ; Pain 7/10; 05:51 BP 128 / 78; Pulse 68; Resp 17; Temp 98.5; Pulse Ox 100% ; Pain 4/10; bm8 04:44 Body Mass Index 37.44 (102.06 kg, 165.1 cm) bm8 04:44 Pain Scale: Adult bm8 05:51 Pain Scale: Adult bm8 [place] Coma Score: 05:00 Eye Response: spontaneous(4). Motor Response: obeys commands(6). Verbal Response: bm8 oriented(5). Total: 15. MDM: 04:45 Medical Screening Exam initiated sp3 05:26 Data reviewed: vital signs, nurses notes, radiologic studies. ED course: 35-year-old sp3 female with right knee injury. Differential diagnosis includes right knee effusion, internal derangement, fracture, among others. No other joint involved. If x-ray negative we will place in knee immobilizer, crutches and follow-up with orthopedics for outpatient MRI. [place] for pain control. Tramadol for home.. 05:26 ED course: Knee x-ray is normal and we will safely discharge patient home as per plan sp3 above.. 02/23 04:54 Order name: XRAY Knee RIGHT 2 view ha1 02/23 05:27 Order name: Knee Immobilizer; Complete Time: 05:51 sp3 Administered Medications: 04:53 Drug: HYDROcodone-acetaminophen PO 5 mg-325 mg 2 tabs PO once Route: PO; ha1 05:51 Follow up: Response: No adverse reaction bm8 Disposition Summary: 02/23/25 05:28 Discharge Ordered Notes: Location: Home sp3 Condition: Stable sp3 Diagnosis - Internal derangement of the right knee sp3 Followup: sp3 - With: Bertrand Gordon MD - When: Upon discharge from the Emergency Department - Reason: Recheck today's complaints Discharge Instructions: - Discharge Summary Sheet sp3 - Crutch Use, Adult sp3 - How to Use a Knee Immobilizer sp3 Forms: - Medication Reconciliation Form sp3 - Antibiotic Education sp3 - Prescription Opioid Use sp3 - Patient Portal Instructions sp3 - Leadership Thank You Letter sp3 - Work release form ha1 Prescriptions: - Tramadol 50 mg Oral Tablet - take 1 tablet ORAL route every 8 hours as needed; 12 tablet; Refills: 0, sp3 Product Selection Permitted Signatures: Dispatcher [employer] EDYael Forrest, MD MD sp3 Brisa Mathis RN RN ha1 Lewis Mendoza RN RN bm8 Corrections: (The following items were deleted from the chart) 05:51 05:27 Crutches ordered. neva3 bm8
[2025-02-23 06:00] VITALS: BP 128/78; TEMP 98.5; O2SAT 100
--- NOTE | 2025-02-23 07:37 | RAD REPORT ---
EXAM DESCRIPTION: Knee Right 2 View CLINICAL HISTORY: PAIN COMPARISON: None. FINDINGS: 2 views of the right knee. No acute fracture or dislocation. Normal osseous minera lization. Joint effusion. IMPRESSION: 1. No acute fracture or dislocation. 2. Joint effusion. If there is concern for internal derangement MRI would provide more complete armen racterization. Electronically signed by: Mario Pradhan DO 02/23/2025 07:11 AM CDT RP [id number] Due to temporary technical issues with the PACS/Sitesimon reporting system, reports are being mikaela d by the in-house radiologist without review as a courtesy to ensure prompt reporting the interpreting radiologist is fully responsible for the content of the report Transcribed Date/Time: 02/23/2025 7:36 AM
== END 2025-02-23 05:54 | disposition home or self-care (01) ==
LOC: ER 04:33
DX: M23.91 Unspecified internal derangement of right knee (principal)
CPT/HCPCS: 99284